=== PATIENT | female | born 1975 | race Caucasian/White ===

== ENCOUNTER 2024-02-27 07:23 | Day surgery (SDC) | payer OTHER, SELFPAY ==
--- NOTE | 2024-02-27 | FL_ITS ---
[place] [id number] Patient Name: TEVIN DUNN MRN: [facility]:[id number] date: 1975 Sex: F Assigned Patient Location: MRI Current Patient Location: MRI Accession/Order Number: [id number] Exam Date: 02/27/2024 07:40 Report Date: 02/27/2024 09:34 At the request of: KENYA JOHNSTON Procedure: FL arthrogram hip EXAMINATION: FL arthrogram hip, FL guided needle placement HISTORY: labral tear, hip pain FLUORO DOSE: (Cannot calculate) mGy Reference air kerma (Ka,r) COMPARISON: No relevant comparison available. TECHNIQUE: An arthrogram was performed under fluoroscopic guidance using non-ionic contrast material in the usual sterile manner after obtaining informed consent. Standard level fluoroscopic mode of operation utilized. FINDINGS: JOINT: Left hip NEEDLE: 25 gauge, 3.5 spinal needle. MEDICATION: 2 mL buffered 1% lidocaine for subcutaneous anesthesia. Approximately 8 mL injected into joint space consisting of a mixture of 5 mL Omnipaque-240, 5 mL 1% Xylocaine and 0.2 mL Dotarem, Kenalog 40 mg. TECHNIQUE: Anterior approach under fluoroscopic guidance. CLINICAL: Decreased pain following the injection (4/10 preinjection; 1/10 post injection). COMPLICATIONS: None. OTHER: Negative. FL/FL arthrogram hip IMPRESSION: 1. Technically successful arthrogram without complication. 2. Please see separate MRI arthrogram report. Electronically authenticated by: WYATT RUIZ Date: 02/27/2024 09:34
--- NOTE | 2024-02-27 | FL_ITS ---
[place] [id number] Patient Name: TEVIN DUNN MRN: [facility]:[id number] date: 1975 Sex: F Assigned Patient Location: MRI Current Patient Location: MRI Accession/Order Number: [id number] Exam Date: 02/27/2024 07:40 Report Date: 02/27/2024 09:34 At the request of: KENYA JOHNSTON Procedure: FL guided needle placement EXAMINATION: FL arthrogram hip, FL guided needle placement HISTORY: labral tear, hip pain FLUORO DOSE: (Cannot calculate) mGy Reference air kerma (Ka,r) COMPARISON: No relevant comparison available. TECHNIQUE: An arthrogram was performed under fluoroscopic guidance using non-ionic contrast material in the usual sterile manner after obtaining informed consent. Standard level fluoroscopic mode of operation utilized. FINDINGS: JOINT: Left hip NEEDLE: 25 gauge, 3.5 spinal needle. MEDICATION: 2 mL buffered 1% lidocaine for subcutaneous anesthesia. Approximately 8 mL injected into joint space consisting of a mixture of 5 mL Omnipaque-240, 5 mL 1% Xylocaine and 0.2 mL Dotarem, Kenalog 40 mg. TECHNIQUE: Anterior approach under fluoroscopic guidance. CLINICAL: Decreased pain following the injection (4/10 preinjection; 1/10 post injection). COMPLICATIONS: None. OTHER: Negative. FL/FL guided needle placement IMPRESSION: 1. Technically successful arthrogram without complication. 2. Please see separate MRI arthrogram report. Electronically authenticated by: WYATT RUIZ Date: 02/27/2024 09:34
--- NOTE | 2024-02-27 | MR_ITS ---
The [address] [address] Patient Name: TEVIN DUNN MRN: [facility]:[id number] date: 1975 Sex: F Assigned Patient Location: MRI Current Patient Location: MRI Accession/Order Number: [id number] Exam Date: 02/27/2024 09:15 Report Date: 02/29/2024 11:05 At the request of: KENYA JOHNSTON Procedure: MR hip LT w con EXAM: MR hip LT w con HISTORY: Left hip pain after an injury in October 2023. Pain is worse with changing positions and after prolonged activity. Evaluate for associated labral tear. COMPARISON: Arthrogram images from 02/27/2024. TECHNIQUE: Multiplanar and multisequence imaging of the pelvis and left hip was performed after intra-articular administration of gadolinium into the left hip joint. FINDINGS: There is no sacral fracture. The pelvic bones are intact including the pubic rami. There is no MRI evidence of avascular necrosis involving the femoral heads. No femoral stress or insufficiency fracture is identified. Mild to moderate degenerative change/osteoarthritis involves the left hip and mild degenerative change involves the right hip with articular cartilage loss, joint space narrowing, and spurring. There is a tear involving the anterosuperior labrum on the left with linear increased signal and contrast signal in the anterior superior labrum tracking into the mid superior labrum. No paralabral cyst is evident. The hamstring tendon origin from the ischial tuberosity demonstrates intermediate signal and mild tendinopathy bilaterally. The iliopsoas tendons insert normally onto the lesser trochanter. No gross gluteal tendon tear is identified. There is increased STIR signal adjacent to the greater trochanter on the right consistent with mild right-sided trochanteric bursitis. No acute abnormality is identified involving visualized intrapelvic structures. There is mild degenerative disc disease in the lower lumbar spine. MR/MR hip LT w con IMPRESSION: 1. No acute bony abnormality involving the pelvis or hips. There is no MRI evidence of avascular necrosis involving the femoral heads. 2. Mild to moderate degenerative change/osteoarthritis involves the left hip with mild degenerative change of the right hip. There is a tear of the anterosuperior labrum on the left extending into the mid anterior labrum. No paralabral cyst is evident. 3. No focal tendon tear or muscle strain is identified. 4. Mild right-sided trochanteric bursitis. Electronically authenticated by: JANI FLORES Date: 02/29/2024 11:05
[2024-02-27] MEDS: SODIUM BICARBONATE INJ (08:40)
[2024-02-27] MEDS: LIDOCAINE INJ (08:40)
[2024-02-27] MEDS: TRIAMCINOLONE ACETONIDE 40 MG/ML VIAL INJ (08:40)
--- NOTE | 2024-02-27 09:47 | SUR.PREOP ---
02/21/24 Pt instructed on procedure, date, time, and prep.
== END 2024-02-27 09:10 | disposition home or self-care (01) ==
LOC: MRI 07:26
PROVIDERS: Radiology Diagnostic Radiology; Visit Provider Orthopaedic Surgery
DX: S73.192A Other sprain of left hip, initial encounter (principal); M25.552 Pain in left hip; X58.XXXA Exposure to other specified factors, initial encounter
CPT/HCPCS: 27093; 73722; 77002; J3301; Q9966